=== PATIENT | female | born 1995 | race Two or more races ===

== ENCOUNTER 2018-11-24 18:41 | Emergency (ER) | payer OTHER ==
[~2018-11-24] VITALS: Ht 162.6 cm; Wt 113.4 kg
[2018-11-24 19:00] VITALS: BP 139/77
--- NOTE | 2018-11-24 19:25 | NUR ---
23/F PRESENTS SELF TO ED, C/O 02/01 SHARP CONSTANT RLQ, SINCE YESTERDAY NIGHT. PT DENIES FEVER, CP, SOB, N/V/D, CONSTIPATION OR DYSURIA. PT IS 7 WEEKS , A1, REPORTS MINIMAL [place]-RED VAGINAL BLEED, SINCE YESTERDAY NIGHT. PT AOX4, GCS 15, SKIN NORMAL WARM AND DRY, RR EVEN AND UNLABORED. LUNG SOUNDS CLEAR BL. BS ACTIVE X4, ABD LARGE SOFT ROUND TENDER ON RLQ. HX C-SECTIONS, CHOLELITHIASIS OTC TYLENOL WITHOUT RELIEF.
[2018-11-24 19:46] LABS: BASOPHILS % (AUTO) 0.5 % (0.0-2.0); EOSINOPHILS # (AUTO) 0.1 K/uL (0-0.4); HEMATOCRIT 35.5 % (36-48); HEMOGLOBIN 11.5 g/dL (12.0-16.0); LYMPHOCYTES # (AUTO) 1.2 K/uL (2.5-16.5); LYMPHOCYTES % (AUTO) 28.6 % (20.5-51.1); MEAN CORPUSCULAR HEMOGLOBIN 23 pg (27-31); MEAN CORPUSCULAR HGB CONC 32 g/dL (33-37); MEAN CORPUSCULAR VOLUME 69.5 fL (80-94); MONOCYTES # (AUTO) 0.5 K/uL (0.8-1.0); MONOCYTES % (AUTO) 11.1 % (1.7-9.3); NEUTROPHILS # (AUTO) 2.4 K/uL (1.8-7.7); NEUTROPHILS % (AUTO) 57.8 % (42.2-75.2); PLATELET COUNT (AUTO) 276 K/uL (140-450); RED CELL DISTRIBUTION WIDTH 18.3 % (11.6-13.7); WHITE BLOOD COUNT (AUTO) 4.2 K/uL (4.8-10.8)
[2018-11-24 19:49] LABS: APPEARANCE,URINE HAZY (CLEAR); BILIRUBIN,URINE NEGATIVE (NEGATIVE); BLOOD, URINE 1+ (NEGATIVE); COLOR,URINE YELLOW (YELLOW); LEUKOCYTE ESTERASE ,URINE NEGATIVE (NEGATIVE); NITRITE, URINE NEGATIVE (NEGATIVE); UGLUCOSE NEGATIVE (NEGATIVE)
[2018-11-24 19:55] LABS: RBC,URINE 0-5 /HPF (0-5); WBC,URINE 0-5 /HPF (0-5)
--- NOTE | 2018-11-24 21:05 | NUR ---
PT IS O-NEGATIVE, REQUESTING FOR RHOGAM. EXPLAINED RISKS AND BENEFITS OF RHOGAM. PT VERBALIZED UNDERSTANDING. ADMINISTERED 1500 IU RHOGAM IM ON L GLUTEUS HEATHER, PT TOLERATED WELL.
--- NOTE | 2018-11-24 21:59 | NUR ---
PT LAYING IN BED, RR EVEN AND UNLABORED. DENIES ANY PAIN AT THIS TIME. VSS. ALL NEEDS MET AT THIS TIME.
--- NOTE | 2018-11-24 22:30 | NUR ---
DR ALTAMIRANO AT BEDSIDE
[2018-11-24 22:55] VITALS: BP 95/60
--- NOTE | 2018-11-24 22:55 | NUR ---
Patient discharged with v/s stable. Written and verbal after care instructions given and explained. Patient verbalized understanding. Ambulatory with steady gait. All questions addressed prior to discharge. Advised to follow up with PMD.
== END 2018-11-24 22:55 | disposition home or self-care (01) ==
LOC: MED 18:41
DX: O20.9 Hemorrhage in early pregnancy, unspecified (principal); R10.31 Right lower quadrant pain; Z3A.01 Less than 8 weeks gestation of pregnancy
CPT/HCPCS: 36415; 76817; 81001; 81025; 84702; 85025; 86886; 86900; 86901; 87086; 99284; J2790; Q0092

== ENCOUNTER 2019-02-01 22:15 | Emergency (ER) | payer OTHER ==
[~2019-02-01] VITALS: Ht 162.6 cm; Wt 112.9 kg
[2019-02-01 22:35] VITALS: BP 138/70
--- NOTE | 2019-02-01 22:49 | NUR ---
PT AMBULATED TO BED 12.
--- NOTE | 2019-02-01 22:50 | NUR ---
23/F PRESENTS TO ED, C/O INTERMITTENT BL MID ABD TIGHTENING, X2 DAYS. REPORTS EXACERBATION WHEN SITTING UPRIGHT, STANDING OR AMBULATING. REPORTS THAT TIGHTENING FEELS SIMILAR TO DANNY IQBAL CONTRACTIONS BUT HAS BEEN LENGTHENING AND WORSENING. PT REPORTS BEING 19 WEEKS , A1. DENIES VAGINAL BLEEDING OR DISCHARGE, FEVER, N/V/D, CONSTIPATION OR DYSURIA. AOX4, SKIN NORMAL WARM AND DRY, LUNG SOUNDS CLEAR BL. BS ACTIVE X4, ABD SOFT ROUND LARGE NONTENDER. HX HTN, DENIES RX, OTC TYLENOL WITH LITTE RELIEF.
--- NOTE | 2019-02-01 22:55 | NUR ---
HEART RATE 145 BY DOPPLER TO LOWER MEDIAL ABD. ERMD AWARE.
--- NOTE | 2019-02-02 00:30 | NUR ---
PT LAYING IN BED, PARTNER AT BEDSIDE. REPORTS 04/04 BL MID ABD TIGHTENING. VSS. DR DELGADO MADE AWARE.
[2019-02-02] MEDS ORDERED: ACETAMINOPHEN EXTRA STRENGTH 500 MG TAB PO ONE (00:50)
[2019-02-02 01:47] VITALS: BP 106/57
== END 2019-02-02 01:49 | disposition home or self-care (01) ==
LOC: MED 22:15
DX: O26.892 Other specified pregnancy related conditions, second trimester (principal); R10.13 Epigastric pain; O16.2 Unspecified maternal hypertension, second trimester; Z3A.19 19 weeks gestation of pregnancy
CPT/HCPCS: 81002; 81025; 99283

== ENCOUNTER 2019-04-03 17:11 | Emergency (ER) | payer OTHER ==
[~2019-04-03] VITALS: Ht 162.6 cm; Wt 113.4 kg
[2019-04-03 17:23] VITALS: BP 125/59
--- NOTE | 2019-04-03 17:31 | NUR ---
PT AMBULATED TO BED 4 WITH STEADY GAIT ACCOMPANIED BY MOTHER
--- NOTE | 2019-04-03 18:04 | NUR ---
BIB SELF. C/O RLQ PAIN, NAUSEA X 3 DAYS. PT STATES SHE IS 26 WEEKS , JEANMARIE: 07/10/2019, [id number]. PATIENT SAYS HER PCP TOLD HER THAT HER APPEDIX WAS INFLAMMED PRIOR TO HER . STATES PAIN HAS WORSENED SINCE THEN. SITE TENDER TO TOUCH. BED IS DOWN, LOCKED, BED RAIL X 1, ERMD TO SEE PT. PMH:DENIES MED RX: DENIES ALLERGY: DENIES
--- NOTE | 2019-04-03 19:09 | NUR ---
REPORT GIVEN TO TOMER FARIAS
[2019-04-03 19:11] LABS: BASOPHILS % (AUTO) 0.3 % (0.0-2.0); EOSINOPHILS # (AUTO) 0.1 K/uL (0-0.4); EOSINOPHILS % (AUTO) 1.7 % (0.0-4.0); HEMATOCRIT 28.3 % (36-48); HEMOGLOBIN 9.3 g/dL (12.0-16.0); LYMPHOCYTES # (AUTO) 1.8 K/uL (2.5-16.5); LYMPHOCYTES % (AUTO) 24.2 % (20.5-51.1); MEAN CORPUSCULAR HEMOGLOBIN 22 pg (27-31); MEAN CORPUSCULAR HGB CONC 33 g/dL (33-37); MEAN CORPUSCULAR VOLUME 67.6 fL (80-94); MONOCYTES # (AUTO) 0.4 K/uL (0.8-1.0); NEUTROPHILS % (AUTO) 68.8 % (42.2-75.2); PLATELET COUNT (AUTO) 273 K/uL (140-450); RED BLOOD CELL COUNT(AUTO) 4.18 MIL/uL (4.20-5.40); RED CELL DISTRIBUTION WIDTH 17.5 % (11.6-13.7); WHITE BLOOD COUNT (AUTO) 7.3 K/uL (4.8-10.8)
[2019-04-03 19:15] LABS: APPEARANCE,URINE CLEAR (CLEAR); BILIRUBIN,URINE NEGATIVE (NEGATIVE); BLOOD, URINE NEGATIVE (NEGATIVE); COLOR,URINE YELLOW (YELLOW); LEUKOCYTE ESTERASE ,URINE 1+ (NEGATIVE); NITRITE, URINE NEGATIVE (NEGATIVE); UGLUCOSE NEGATIVE (NEGATIVE)
[2019-04-03 19:26] LABS: ANION GAP 14.4 (8-16); CARBON DIOXIDE 21.1 mmol/L (21-32); CREATININE 0.4 mg/dL (0.6-1.3); POTASSIUM 3.5 mmol/L (3.5-5.1)
[2019-04-03 19:27] LABS: RBC,URINE 0-5 /HPF (0-5)
--- NOTE | 2019-04-03 19:30 | NUR ---
PT RESTING IN BED COMFORTABLY. WILL CONTINUE TO MONITOR.
[2019-04-03 19:32] LABS: ALBUMIN 2.6 g/dL (3.4-5.0); TOTAL BILIRUBIN 0.4 mg/dL (0.0-1.0)
--- NOTE | 2019-04-03 20:25 | NUR ---
PT RESTING IN BED COMFORTABLY ON CELL PHONE. FAMILY AT BEDSIDE. WILL CONTINUE TO MONITOR.
--- NOTE | 2019-04-03 20:52 | NUR ---
Patient discharged with v/s stable. Written and verbal after care instructions given and explained. Pt encouraged to drink plenty of fluids until urine is clear. Patient alert, oriented and verbalized understanding of instructions. Ambulatory with steady gait. All questions addressed prior to discharge. ID band removed. Patient advised to follow up with RN PSYCH in 2-3 days. Rx of MACROBID AND FERROUS SULFATE WAS given. Patient educated on indication of medication including possible reaction and side effects. Opportunity to ask questions provided and answered.
[2019-04-03 20:53] VITALS: BP 108/61
== END 2019-04-03 20:52 | disposition home or self-care (01) ==
LOC: MED 17:11
DX: O23.42 Unspecified infection of urinary tract in pregnancy, second trimester (principal); O99.012 Anemia complicating pregnancy, second trimester; Z3A.26 26 weeks gestation of pregnancy
CPT/HCPCS: 36415; 76705; 76805; 80053; 81001; 81025; 84702; 85025; 86900; 86901; 87086; 99284; Q0092

== ENCOUNTER 2021-07-06 12:55 | Emergency (ER) | payer OTHER ==
[~2021-07-06] VITALS: Ht 162.6 cm; Wt 98.0 kg
[2021-07-06 12:58] VITALS: BP 153/111
--- NOTE | 2021-07-06 13:01 | NUR ---
PT W/C ASSISTED TO SANTOS Vaughn
--- NOTE | 2021-07-06 13:10 | NUR ---
BIB C/O LEFT KNEE PAIN RADIATING TO LEFT HIP S/P FALL X LAST NIGHT.
[2021-07-06] MEDS ORDERED: KETOROLAC 60 MG/2 ML VIAL IM ONE (13:15)
--- NOTE | 2021-07-06 13:45 | NUR ---
PT TAKEN TO XRAY.
--- NOTE | 2021-07-06 14:54 | NUR ---
per erpa pt left knee was place in an ortho splint and pmcs was assessed before and after all wnl. pt was given cruthes and taught how to use cruthes.
[2021-07-06] MEDS ORDERED: IBUP-2213 PO (15:01)
[2021-07-06 15:13] VITALS: BP 153/111
--- NOTE | 2021-07-06 15:13 | NUR ---
Patient discharged with v/s stable. Written and verbal after care instructions given and explained. Patient alert, oriented and verbalized understanding of instructions. Wheel Chair Assisted with to car. All questions addressed prior to discharge. ID band removed. Patient advised to follow up with PMD. Rx of ibuprofen given. Patient educated on indication of medication including possible reaction and side effects. Opportunity to ask questions provided and answered.
== END 2021-07-06 15:13 | disposition home or self-care (01) ==
LOC: MED 12:55
DX: S86.912A Strain of unspecified muscle(s) and tendon(s) at lower leg level, left leg, initial encounter (principal); S76.012A Strain of muscle, fascia and tendon of left hip, initial encounter; I10 Essential (primary) hypertension; Z79.1 Long term (current) use of non-steroidal anti-inflammatories (NSAID); W01.0XXA Fall on same level from slipping, tripping and stumbling without subsequent striking against object, initial encounter; Y92.89 Other specified places as the place of occurrence of the external cause; Y93.89 Activity, other specified; Y99.8 Other external cause status
CPT/HCPCS: 29505; 73502; 73562; 81025; 96372; 99284; J1885